=== PATIENT | male | born 1970 | race Caucasian/White ===

== ENCOUNTER 2016-07-29 17:14 | Emergency (ER) | payer OTHER ==
[~2016-07-29] VITALS: Ht 175.3 cm; Wt 109.5 kg
[2016-07-29 17:23] VITALS: Ht 175.3 cm; Wt 109.5 kg
--- NOTE | 2016-07-29 18:49 | ERD ---
ER Documentation Chief Complaint Date/Time DATE: 07/29/16 TIME: 18:48 Chief Complaint LEFT EAR LACERATION AND LEFT EYE INJURY HPI This patient is a 46-year-old male with no significant medical history presenting to the emergency department for laceration to his left ear which occurred today at approximately 4 PM. Tetanus is up-to-date. The patient states he was doing some overhead work when a drain fell onto his left ear. The patient denies head injury or loss of consciousness. He denies all other complaints at this time. ROS All systems reviewed and are negative except as per history of present illness. Medications Home Meds Active Scripts Ketotifen Fumarate (ZADITOR) 5 Ml Drops, 5 ML OP BID, #1 BOTTLE Prov:ARIK MORENO PA-C 07/29/16 Cephalexin* (Keflex*) 500 Mg Capsule, 500 MG PO TID for 7 Days, #21 CAP Prov:ARIK MORENO PA-C 07/29/16 Allergies Allergies: Coded Allergies: No Known Allergy (Unverified , 07/29/16) PMhx/Soc Medical and Surgical Hx: pt denies Medical Hx, pt denies Surgical Hx History of Surgery: No Anesthesia Reaction: No Hx Neurological Disorder: No Hx Respiratory Disorders: No Hx Cardiac Disorders: No Hx Psychiatric Problems: No Hx Miscellaneous Medical Probl: No Hx Alcohol Use: Yes Hx Substance Use: No Hx Tobacco Use: No Smoking Status: Never smoker FmHx Noncontributory for chief complaint. Physical Exam Vitals Vital Signs Date Time Temp Pulse Resp B/P Pulse Ox O2 Delivery O2 Flow Rate FiO2 07/29/16 17:23 98.6 77 18 137/83 97 Physical Exam Const: The patient is resting comfortably in no acute distress. Head: Atraumatic Eyes: EOMs are intact bilaterally. ENT: Normal External Ears, Nose and Mouth. Neck: Full range of motion..~ No meningismus. Resp: Clear to auscultation bilaterally Cardio: Regular rate and rhythm, no murmurs Abd: Soft, non tender, non distended. Normal bowel sounds Skin: No petechiae or rashes. There is a superficial 1 cm laceration to the left ear. There is mild active bleeding. Back: No midline or flank tenderness Ext: No cyanosis, or edema Neur: Awake and alert Psych: Normal Mood and Affect Results 24 hrs Current Medications Medications (Trade) Dose Ordered Sig/Marti Route PRN Reason Start Time Stop Time Status Last Admin Dose Admin Lidocaine (Xylocaine 1% (Mdv) 20 ml) 20 ml ONCE ONCE SC 07/29/16 19:00 07/29/16 19:01 DC Procedures/MDM 46-year-old male presents to the emergency department secondary to complaints of laceration to left ear. Laceration Repair by KIMBERLY De La Rosa, under my direct supervision. Anesthesia: 1% lidocaine locally Location: Left ear Tendon/Joint/Nerves: No injury Foreign body: None detected after copious irrigation and exploration Technique: Simple Interrupted Sutures Complexity: No subcutaneous sutures/mucosal repair/ edge excision Post Closure Length: 1 cm Patient's bleeding was easily controlled in the department and there is no indication of anemia. No evidence of compartment syndrome, neurologic injury, vascular injury, open joint, tendon laceration, or foreign body. Patient is appropriate for outpatient follow up. 48 hour wound check. Scar minimization instructions given. Departure Diagnosis: Primary Impression: Laceration Condition: Stable Patient Instructions: Laceration, All, Laceration, Face (Suture Or Tape) [facility]errals[facility] Additional Instructions: Return in 48 hours for wound recheck. Return in 5-7 days for suture removal. Keep the area clean dry and covered. Follow-up with your primary care physician within 1 week. Return to the emergency department immediately should you have any new or worsening symptoms, uncontrolled fevers, or other unexplained symptoms. Take all medications as directed. ARIK MORENO PA-C Jul 29, 2016 18:49
[2016-07-29] MEDS ORDERED: LIDOCAINE 1% (MDV) 20 ML INJ SC ONE (19:00)
[2016-07-29] MEDS ORDERED: CEPH-443 PO (19:56)
[2016-07-29] MEDS ORDERED: KETO5DRO58 OP (19:56)
== END 2016-07-29 20:40 | disposition home or self-care (01) ==
LOC: FTE 17:14
DX: S01.312A Laceration without foreign body of left ear, initial encounter (principal); W20.8XXA Other cause of strike by thrown, projected or falling object, initial encounter; Y92.89 Other specified places as the place of occurrence of the external cause